=== PATIENT | male | born 1970 | race Caucasian/White ===

== ENCOUNTER → 2016-07-21 | Outpatient (CLI) | payer SELFPAY ==
[2016-07-21 07:51] LABS: ALT 29 U/L (21-72); AST 17 U/L (17-59); Cholesterol 184 mg/dL (<200); HDL Cholesterol 34 mg/dL (40-60); Triglycerides 260 mg/dL (<150)
== END | disposition home or self-care (01) ==
LOC: LABWHC1 06:32
PROVIDERS: ATTEND Internal Medicine Cardiovascular Disease
DX: E78.2 Mixed hyperlipidemia (principal)
CPT/HCPCS: 36415; 80061; 84450; 84460

== ENCOUNTER 2017-05-09 15:03 | Emergency (ER) | payer OTHER ==
[2017-05-09 15:56] VITALS: BP 163/84; PULSE 81; RESP 18; TEMP 97.3
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
--- NOTE | 2017-05-09 17:26 | CT ---
EXAMINATION TYPE: CT brain gaye evangelista DATE OF EXAM: 05/09/2017 COMPARISON: NONE HISTORY: Patient complains of neck pain post fall without blow to head. Patient denies head complain ts at time of study. Pain CT DLP: 1970 mGycm Automated exposure control for dose reduction was used. TECHNIQUE: CT scan of the head and cervical spine are performed without contrast. FINDINGS: Ventricles and sulci appear normal. There is no mass effect nor midline shift. There is n o sign of intracranial hemorrhage. The calvarium is intact. There is some mild mucosal thickening in the ethmoid sinuses. Cervical vertebra have normal alignment. There is mild anterior spurring at C5-C6 C6-7. Disc spaces a re fairly normal. Facet joints are intact. Skull base appears intact. There is no evidence of cervica l spine fracture. IMPRESSION: Mild ethmoid sinusitis. Otherwise negative CT scan of the brain. Mild degenerative changes in the lower cervical spine. No fracture.
--- NOTE | 2017-05-09 17:27 | XR ---
EXAMINATION TYPE: XR thoracic spine complete DATE OF EXAM: 05/09/2017 COMPARISON: NONE HISTORY: Back pain TECHNIQUE: 4 views FINDINGS: The thoracic vertebra have normal alignment. There is spurring anteriorly in the mid and lo wer thoracic spine. There is no paraspinal mass. Posterior elements appear intact. IMPRESSION: Mild spondylotic changes. No fracture seen.
--- NOTE | 2017-05-09 17:28 | XR ---
EXAMINATION TYPE: XR lumbar spine 2 or 3V DATE OF EXAM: 05/09/2017 COMPARISON: NONE HISTORY: Back pain TECHNIQUE: 3 views FINDINGS: The vertebra have normal alignment. Posterior elements are intact. Disc spaces are fairly n ormal. Sacroiliac joints are intact. There is no compression fracture. IMPRESSION: Negative lumbar spine exam.
== END 2017-05-09 17:53 | disposition home or self-care (01) ==
LOC: EC 15:03
DX: S20.221A Contusion of right back wall of thorax, initial encounter (principal); K21.9 Gastro-esophageal reflux disease without esophagitis; I25.2 Old myocardial infarction; E78.5 Hyperlipidemia, unspecified; I10 Essential (primary) hypertension; F17.200 Nicotine dependence, unspecified, uncomplicated; Z95.5 Presence of coronary angioplasty implant and graft; Z98.890 Other specified postprocedural states; Z79.82 Long term (current) use of aspirin; Z79.899 Other long term (current) drug therapy; Z91.048 Other nonmedicinal substance allergy status; W01.198A Fall on same level from slipping, tripping and stumbling with subsequent striking against other object, initial encounter; Y92.69 Other specified industrial and construction area as the place of occurrence of the external cause; Y99.0 Civilian activity done for income or pay
CPT/HCPCS: 70450; 72072; 72100; 72125; 99284

== ENCOUNTER → 2017-07-31 | Outpatient (CLI) | payer BC ==
[2017-07-31 13:13] LABS: Basophils # (A) 0.1 k/uL (0-0.2); Basophils % (A) 1 %; Eosinophils # (A) 0.5 k/uL (0-0.7); Eosinophils % (A) 5 %; HCT 38.4 % (39.0-53.0); HGB 13.1 gm/dL (13.0-17.5); Lymphocytes # (A) 2.2 k/uL (1.0-4.8); Lymphocytes % (A) 24 %; MCV 88.2 fL (80.0-100.0); Mean Platelet Volume 6.4; Monocytes # (A) 0.5 k/uL (0-1.0); Monocytes % (A) 6 %; Neutrophils # (A) 5.8 k/uL (1.3-7.7); Neutrophils % (A) 63 %; Platelet Count 340 k/uL (150-450); RBC 4.36 m/uL (4.30-5.90); RDW 14.2 % (11.5-15.5); WBC 9.2 k/uL (3.8-10.6)
[2017-07-31 13:19] LABS: ALT 29 U/L (21-72); AST 13 U/L (17-59); Albumin 3.8 g/dL (3.5-5.0); Alkaline Phosphatase 84 U/L (38-126); Anion Gap 10 mmol/L; Blood Urea Nitrogen 13 mg/dL (9-20); Calcium 9.1 mg/dL (8.4-10.2); Carbon Dioxide 30 mmol/L (22-30); Chloride 102 mmol/L (98-107); Cholesterol 128 mg/dL (<200); Glucose 135 mg/dL (74-99); HDL Cholesterol 35 mg/dL (40-60); LDL Cholesterol,Calculated 66 mg/dL (0-99); Potassium 4.4 mmol/L (3.5-5.1); Sodium 142 mmol/L (137-145); Total Bilirubin 0.2 mg/dL (0.2-1.3); Total Protein 6.5 g/dL (6.3-8.2); Triglycerides 133 mg/dL (<150)
[2017-07-31 22:44] LABS: Hemoglobin A1C 6.7 % (4.0-6.0)
== END ==
LOC: LABWHC1 12:14
PROVIDERS: ATTEND Family Medicine
DX: E11.9 Type 2 diabetes mellitus without complications (principal); I10 Essential (primary) hypertension
CPT/HCPCS: 36415; 80053; 80061; 83036; 84443; 85025

== ENCOUNTER 2017-08-07 11:19 | Day surgery (SDC) | payer BC ==
[2017-08-03 10:54] VITALS: BMI 44.9
[~2017-08-07 11:19] MED LIST: LACTATED RINGERS 1,000 ML IV SCH
[2017-08-07 11:45] VITALS: RESP 18; TEMP 98.1
[2017-08-07] MEDS ORDERED: LIDOCAINE 1% 20 ML VIAL (10MG/ML) FOR IV START INTRADERMA ONE (11:56)
[2017-08-07] MEDS ORDERED: PROPOFOL 10 MG/ML 20 ML VIAL IV ONE ×2 (12:40)
[2017-08-07] MEDS ORDERED: LIDOCAINE 1% INJ 10MG/ML (20 ML MDV) ONE ×2 (12:40)
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
--- NOTE | 2017-08-07 13:03 | P.OP ---
Date of Procedure: 08/07/17 Preoperative Diagnosis: GI bleed Postoperative Diagnosis: Colonic polyp at 20 cm pathology pending Procedure(s) Performed: Colonoscopy Anesthesia: MAC Surgeon: Javier Tortter Pathology: other (Colonic polyp 20 cm) Condition: stable Disposition: PACU Description of Procedure: The patient's placed on the endoscopy table in the lateral position. He received IV sedation. Digital rectal exam was performed which revealed no abnormalities. The prostate was symmetric without nodules. The flexible colonoscope was then placed patient anus and passed throughout the entire colon. The ileocecal valve was visualized. The cecum, ascending, transverse colon appeared normal. The descending and sigmoid colon appeared normal. At the rectum with a 20 cm haleigh there was a hemorrhagic polyp. This was removed with the snare. Scope was withdrawn and the remainder of the rectum. Normal. Scope was withdrawn for patient.
[2017-08-07 13:27] VITALS: BP 150/93; PULSE 75
== END 2017-08-07 13:32 | disposition home or self-care (01) ==
LOC: ORWHC2ENDO 11:19
PROVIDERS: ATTEND Surgery
DX: K62.1 Rectal polyp (principal); K21.9 Gastro-esophageal reflux disease without esophagitis; E78.5 Hyperlipidemia, unspecified; I10 Essential (primary) hypertension; I25.2 Old myocardial infarction; M19.90 Unspecified osteoarthritis, unspecified site; G47.30 Sleep apnea, unspecified; F32.9 Major depressive disorder, single episode, unspecified; E66.9 Obesity, unspecified; Z68.41 Body mass index [BMI] 40.0-44.9, adult; F17.210 Nicotine dependence, cigarettes, uncomplicated; Z91.048 Other nonmedicinal substance allergy status; Z79.82 Long term (current) use of aspirin; Z79.899 Other long term (current) drug therapy; Z99.89 Dependence on other enabling machines and devices; Z86.010 Personal history of colon polyps; Z95.5 Presence of coronary angioplasty implant and graft; Z80.9 Family history of malignant neoplasm, unspecified
CPT/HCPCS: 45385; 88305; J2001; J2704

== ENCOUNTER 2017-11-07 13:46 | Observation (INO) | payer BC ==
[2017-11-07 14:33] LABS: Basophils # (A) 0.1 k/uL (0-0.2); Basophils % (A) 1 %; Eosinophils # (A) 0.6 k/uL (0-0.7); Eosinophils % (A) 5 %; HCT 38.6 % (39.0-53.0); Lymphocytes # (A) 2.5 k/uL (1.0-4.8); Lymphocytes % (A) 20 %; MCHC 33.6 g/dL (31.0-37.0); MCV 89.4 fL (80.0-100.0); Mean Platelet Volume 6.9; Monocytes # (A) 0.4 k/uL (0-1.0); Monocytes % (A) 3 %; Neutrophils # (A) 8.7 k/uL (1.3-7.7); Neutrophils % (A) 70 %; Platelet Count 372 k/uL (150-450); RBC 4.31 m/uL (4.30-5.90); RDW 14.3 % (11.5-15.5); WBC 12.5 k/uL (3.8-10.6)
[2017-11-07 14:42] LABS: Partial Thromboplastin Time 22.3 sec (22.0-30.0); Prothrombin Time 9.5 sec (9.0-12.0)
[2017-11-07 14:43] LABS: ALT 29 U/L (21-72); AST 18 U/L (17-59); Albumin 3.9 g/dL (3.5-5.0); Alkaline Phosphatase 111 U/L (38-126); Anion Gap 10 mmol/L; Blood Urea Nitrogen 14 mg/dL (9-20); Calcium 9.3 mg/dL (8.4-10.2); Carbon Dioxide 23 mmol/L (22-30); Chloride 103 mmol/L (98-107); Glucose 275 mg/dL (74-99); Magnesium 1.7 mg/dL (1.6-2.3); Potassium 4.5 mmol/L (3.5-5.1); Sodium 136 mmol/L (137-145); Total Bilirubin 0.3 mg/dL (0.2-1.3); Total Protein 7.2 g/dL (6.3-8.2)
--- NOTE | 2017-11-07 14:46 | XR ---
EXAMINATION TYPE: XR chest 2V DATE OF EXAM: 11/07/2017 COMPARISON: 09/05/2014 TECHNIQUE: PA and lateral views submitted. HISTORY: Chest pain FINDINGS: The lungs are clear and there is no pneumothorax, pleural effusion, or focal pneumonia. Heart is mi ldly prominent. There is a mild central coarsened interstitium. Biapical pleural thickening. Hypertro phic change of the spine. IMPRESSION: 1. Cardia megaly correlate for mild central venous congestion.
[2017-11-07 14:58] LABS: Creatine Kinase 62 U/L (55-170)
[2017-11-07 15:10] LABS: Creatine Kinase MB 0.5 ng/mL (0.0-2.4); Troponin I <0.012 ng/mL (0.000-0.034)
[2017-11-07] MEDS ORDERED: NITROGLYCERIN SL TABS 0.4 MG TAB SUBLINGUAL PRN (16:17)
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
[2017-11-07] MEDS: CITALOPRAM HYDROBROMIDE 20 MG TAB PO SCH (20:13)
[2017-11-07] MEDS: PRAVASTATIN SODIUM 40 MG TAB PO SCH (20:13)
[2017-11-07] MEDS: PANTOPRAZOLE 40 MG TABLET PO SCH (20:13)
[2017-11-07] MEDS: CYCLOBENZAPRINE 10 MG TAB PO SCH (20:13)
[2017-11-07] MEDS: FUROSEMIDE 20 MG TAB PO SCH (20:13)
[2017-11-07] MEDS: NICOTINE 21MG/24HR PATCH TRANSDERM SCH (20:42)
[2017-11-07] MEDS ORDERED: CLOPIDOGREL 75 MG TAB PO SCH (21:00)
[2017-11-07] MEDS ORDERED: ASPIRIN 81 MG PO SCH (21:00)
[2017-11-07 21:23] LABS: Creatine Kinase 54 U/L (55-170)
[2017-11-07 21:36] LABS: Creatine Kinase MB 0.4 ng/mL (0.0-2.4); Troponin I <0.012 ng/mL (0.000-0.034)
--- NOTE | 2017-11-07 22:00 | HP ---
HISTORY AND PHYSICAL CHIEF COMPLAINT: A 47-year-old male admitted with a history of myocardial infarction, multiple cardiac stents in the past. He has had chest pain, chest pressure radiating down his left arm, suspicious for heart disease with some diaphoresis. No nausea, vomiting. Had some numbness in the jaw. Came to emergency room due to rule out further myocardial infarction. REVIEW OF SYSTEMS: Fourteen point review of systems negative except for mentioned in HPI. MEDICATIONS: 1. Prilosec 20 mg daily. 2. Coreg 12.5 b.i.d. 3. Aspirin 81 daily. 4. Pravachol 40 daily. 5. Celexa 20 daily. 6. Flexeril 10 daily. 7. Lasix 20 daily. 8. Requip 1 mg q.h.s. ALLERGIES: ADHESIVE. The 14-point review of systems negative except for mentioned in HPI. PAST MEDICAL HISTORY: Eye disorder, GERD, dyslipidemia, hypertension, myocardial infarction, glaucoma, heart catheterization, stent, hernia repair, orthopedic surgery, right knee scopes x3, previous 3 previous heart catheterization, one stent. SOCIAL HISTORY: Current everyday smoker. No alcohol. No illicit drugs. PHYSICAL EXAMINATION: Temperature 98, pulse 99, respiratory 16 to 18, blood pressure 158/82, O2 96% on room air. HEENT: Normocephalic, atraumatic. Lungs are clear. CARDIAC: S1, S2. Abdomen is soft, nontender. MUSCULOSKELETAL: Pulses are equal. EXTREMITIES: Motor skills no focal deficits. Cranial nerves are intact. SKIN: No rash, excoriation, bruises. PSYCH: Fair mood and affect. EKG shows no ischemia. Patient has a bit of leukocytosis. Glucose of 275. Chest x- ray cardiomegaly. No signs of heart failure. We will check a urinary tract infection to rule that out. Rule out diabetes. Continue to check troponins. Await for Cardiology consult. D-dimer to rule out PE, although chest x-ray is negative this time. MMODL / IJN: [id number] /
[2017-11-08 03:11] LABS: Creatine Kinase 49 U/L (55-170)
[2017-11-08 03:24] LABS: Creatine Kinase MB 0.4 ng/mL (0.0-2.4); Troponin I <0.012 ng/mL (0.000-0.034)
[2017-11-08 03:29] LABS: Cholesterol 214 mg/dL (<200); HDL Cholesterol 30 mg/dL (40-60); Triglycerides 492 mg/dL (<150)
[2017-11-08 05:14] LABS: Hemoglobin A1C 9.1 % (4.0-6.0)
[2017-11-08] MEDS ORDERED: ASPIRIN 325 MG TAB PO SCH (09:00)
[2017-11-08 10:00] VITALS: BMI 46.5
[2017-11-08] MEDS ORDERED: SODIUM CHLORIDE 0.9% 1,000 ML in EMPTY BAG 1 BAG IV ONE (10:25)
[2017-11-08] MEDS ORDERED: ALPRAZolam 0.25 MG TAB PO PRN (10:25)
[2017-11-08] MEDS ORDERED: ASPIRIN 325 MG TAB PO STA (10:25)
[2017-11-08] MEDS ORDERED: ALPRAZolam 0.5 MG TAB PO PRN (10:25)
[2017-11-08] MEDS: CARVEDILOL 12.5 MG TAB PO SCH ×2 (11:05→17:17)
[2017-11-08] MEDS: NICOTINE 21MG/24HR PATCH TRANSDERM SCH (11:06)
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
--- NOTE | 2017-11-08 12:26 | ECHOF ---
Referral Reason:cp MEASUREMENTS -------- HEIGHT: 188.0 cm WEIGHT: 164.2 kg BP: 170/78 RVIDd: 3.6 cm (< 3.3) IVSd: 1.6 cm (0.6 - 1.1) LVIDd: 5.2 cm (3.9 - 5.3) LVPWd: 1.7 cm (0.6 - 1.1) IVSs: 2.0 cm LVIDs: 4.6 cm LVPWs: 1.5 cm LA Diam: 4.8 cm (2.7 - 3.8) Ao Diam: 3.5 cm (2.0 - 3.7) AV Cusp: 1.9 cm (1.5 - 2.6) LA Diam: 4.5 cm (2.7 - 3.8) MV EXCURSION: 18.134 mm (> 18.000) MV EF SLOPE: 75 mm/s (70 - 150) EPSS: 1.2 cm MV E Bethel: 0.66 m/s MV DecT: 156 ms MV A Bethel: 0.66 m/s MV E/A Ratio: 1.01 RAP: 5.00 mmHg RVSP: 13.19 mmHg FINDINGS -------- Sinus rhythm. Morbid Obesity The left ventricular size is normal. There is moderate concentric left ventricular hypertrophy. O verall left ventricular systolic function is normal with, an EF between 55 - 60 %. The right ventricle is mildly enlarged. The left atrial size is normal. The right atrial size is normal. 5.0mg OF Lumason UTLIZED: 2 OR MORE WALL SEGMENTS NOT VISUALIZED. The aortic valve is trileaflet, and appears structurally normal. No aortic stenosis or regurgitation. Mild mitral regurgitation is present. Mild tricuspid regurgitation present. There is no evidence of pulmonary hypertension. The right v entricular systolic pressure, as measured by Doppler, is 13.19mmHg. The pulmonic valve was not well visualized. The aortic root size is normal. There is no pericardial effusion. CONCLUSIONS -------- 1. Morbid Obesity 2. The left ventricular size is normal. 3. There is moderate concentric left ventricular hypertrophy. 4. Overall left ventricular systolic function is normal with, an EF between 55 - 60 %. 5. The right ventricle is mildly enlarged. 6. The left atrial size is normal. 7. The right atrial size is normal. 8. 5.0mg OF Lumason UTLIZED: 2 OR MORE WALL SEGMENTS NOT VISUALIZED. 9. The aortic valve is trileaflet, and appears structurally normal. No aortic stenosis or regurgitati on. 10. Mild mitral regurgitation is present. 11. Mild tricuspid regurgitation present. 12. There is no evidence of pulmonary hypertension. 13. The right ventricular systolic pressure, as measured by Doppler, is 13.19mmHg. 14. The pulmonic valve was not well visualized. 15. The aortic root size is normal. 16. There is no pericardial effusion. [employer]SEMBLER: Anca Velasquez RDCS
[2017-11-08] MEDS: FUROSEMIDE 20 MG TAB PO SCH (20:39)
[2017-11-08] MEDS: CITALOPRAM HYDROBROMIDE 20 MG TAB PO SCH (20:39)
[2017-11-08] MEDS: PANTOPRAZOLE 40 MG TABLET PO SCH (20:39)
[2017-11-08] MEDS: CYCLOBENZAPRINE 10 MG TAB PO SCH (20:39)
[2017-11-08] MEDS: PRAVASTATIN SODIUM 40 MG TAB PO SCH (20:39)
[2017-11-08] MEDS ORDERED: INSULIN ASPART 100 UNIT/ML 1 ML 10 ML VIAL SQ SCH (21:00)
[2017-11-08 21:30] LABS: Glucose,Whole Blood 513 mg/dL (75-99)
[2017-11-08] MEDS ORDERED: INSULIN ASPART 100 UNIT/ML 1 ML 10 ML VIAL SQ ONE (21:34)
[2017-11-08 22:29] LABS: Glucose,Whole Blood 456 mg/dL (75-99)
[2017-11-08] MEDS: INSULIN ASPART 100 UNIT/ML 1 ML 10 ML VIAL SQ SCH (22:47)
[2017-11-08 23:53] LABS: Glucose,Whole Blood 395 mg/dL (75-99)
[2017-11-09] MEDS: CARVEDILOL 12.5 MG TAB PO SCH (05:43)
[2017-11-09 06:58] LABS: Glucose,Whole Blood 207 mg/dL (75-99)
[2017-11-09] MEDS: INSULIN ASPART 100 UNIT/ML 1 ML 10 ML VIAL SQ SCH ×2 (08:32→13:03)
[2017-11-09] MEDS ORDERED: ASPIRIN 81 MG PO ONE (09:00)
[2017-11-09] MEDS ORDERED: ASPIRIN 81 MG PO SCH (09:00)
[2017-11-09] MEDS ORDERED: IV FLUID CONTINUATION 575 ML IV ONE (10:42)
[2017-11-09] MEDS: MIDAZOLAM 2 MG/2 ML VIAL IV ONE ×2 (11:04→11:10)
[2017-11-09] MEDS ORDERED: LIDOCAINE 1% INJ 10MG/ML (20 ML MDV) SQ ONE (11:08)
[2017-11-09] MEDS ORDERED: NITROGLYCERIN OINT 1 INCH/GM PACKET TOPICAL ONE (11:12)
[2017-11-09] MEDS ORDERED: fentaNYL (PF) 50 MCG/ML 2 ML AMP IV ONE (11:14)
[2017-11-09] MEDS ORDERED: ENALAPRILAT 1.25 MG/ML 1 ML VIAL IV ONE (11:27)
[2017-11-09] MEDS ORDERED: RX INFO: IV CONTRAST WAS GIVEN 1 EACH MISC MISCELLANE PRN (11:32)
[2017-11-09] MEDS ORDERED: IOPAMIDOL-370 125ML BTL INJ ONE (11:39)
[2017-11-09] MEDS ORDERED: SODIUM CHLORIDE 0.9% 1,000 ML IV SCH (11:45)
[2017-11-09] MEDS ORDERED: LISINOPRIL 10 MG TAB PO SCH (11:45)
[2017-11-09] MEDS: NICOTINE 21MG/24HR PATCH TRANSDERM SCH (11:45)
[2017-11-09 12:12] LABS: Glucose,Whole Blood 163 mg/dL (75-99)
[2017-11-09 12:18] VITALS: RESP 18; TEMP 98.3
--- NOTE | 2017-11-09 12:29 | CC ---
CARDIAC CATHETERIZATION REPORT INDICATION: Unstable angina. This is a 47-year-old gentleman with history of coronary artery disease, status post angioplasty of the ostial right coronary artery, who comes into hospital complaining of chest pain. Did not have significant EKG changes and myocardial infarction was ruled out. My associate who evaluated the patient advised him to undergo cardiac catheterization. The patient had been explained of risks, benefits and alternatives. PROCEDURE NOTE: After obtaining informed consent, left heart catheterization and coronary angiogram were performed via the right femoral artery using standard Alecia catheters. Patient tolerated the procedure well without any obvious immediate complications. A femoral angiogram was performed and Angio-Seal was deployed for hemostasis. Patient received moderate conscious sedation. Total sedation time was 23 minutes. FINDINGS: 1. HEMODYNAMICS: Left ventricular end-diastolic pressure is 18 to 20 mm. There is no significant gradient across the aortic valve. 2. LEFT VENTRICULOGRAM: Left ventriculogram is not performed. 3. ANGIOGRAPHIC DATA: 4. Left main coronary artery: Left main coronary artery is a normal-sized vessel and is free of stenosis. Divides into left anterior descending coronary artery and circumflex coronary artery. LAD and its branches are free of significant stenosis. There is myocardial bridging involving the diagonal branch. Circumflex coronary artery and its branches are free of significant disease. Right coronary artery is a large dominant vessel. The ostial portion was previously stented. It appears patent. There is a mild atherosclerotic plaque in the proximal part that we do not see any dampening of the pressure and no significant lesion is noted. CONCLUSIONS: Patent stent within the ostial portion of the right coronary artery. PLAN: The patient's management is going to be in the form of medical therapy, aggressive risk factor modification and optimal control of blood pressure. If symptoms persist, I may consider a stress test on him and if he has ischemia in the right coronary artery distribution, we may have to re-address the ostium. MMODL / IJN: [id number] /
[2017-11-09 16:12] VITALS: BP 149/82; PULSE 81
== END 2017-11-09 18:00 | disposition home or self-care (01) ==
LOC: EC 13:46 → 3OBS 16:17
PROVIDERS: ADMIT Family Medicine; ATTEND Family Medicine
DX: I25.110 Atherosclerotic heart disease of native coronary artery with unstable angina pectoris (principal); I11.9 Hypertensive heart disease without heart failure; E78.5 Hyperlipidemia, unspecified; H40.9 Unspecified glaucoma; E78.1 Pure hyperglyceridemia; K21.9 Gastro-esophageal reflux disease without esophagitis; R05 Cough; F17.200 Nicotine dependence, unspecified, uncomplicated; D72.829 Elevated white blood cell count, unspecified; G47.33 Obstructive sleep apnea (adult) (pediatric); M19.90 Unspecified osteoarthritis, unspecified site; E66.01 Morbid (severe) obesity due to excess calories; Z68.42 Body mass index [BMI] 45.0-49.9, adult; Z79.82 Long term (current) use of aspirin; Z79.899 Other long term (current) drug therapy; Z91.048 Other nonmedicinal substance allergy status; Z95.5 Presence of coronary angioplasty implant and graft; I25.2 Old myocardial infarction; Z99.89 Dependence on other enabling machines and devices; Z82.49 Family history of ischemic heart disease and other diseases of the circulatory system; Z80.9 Family history of malignant neoplasm, unspecified
CPT/HCPCS: 99285 ×2; 36415; 93005; 93306; 93458; 85379; 83880; 80061; 80053; 84443; 82550 ×2; 82553 ×2; 83735; 84484 ×2; 85025; 85610; 85730; 87086; 83036; 71046; 99152; 99153; G0378 ×3; C1760; C1894; C1769; S4990; J2250; J2001; J3010; Q9950; Q9967

== ENCOUNTER 2018-07-03 14:43 | Observation (INO) | payer OTHER ==
--- NOTE | 2018-07-03 15:15 | XR ---
EXAMINATION TYPE: XR chest 2V DATE OF EXAM: 07/03/2018 COMPARISON: 11/07/2017 INDICATION: Chest pain and hypertension TECHNIQUE: Frontal and lateral views of the chest are obtained. FINDINGS: The heart size is normal. The pulmonary vasculature is normal. The lungs are clear. IMPRESSION: 1. No acute pulmonary process.
[2018-07-03 15:16] LABS: Basophils # (A) 0.1 k/uL (0-0.2); Basophils % (A) 1 %; Eosinophils # (A) 0.6 k/uL (0-0.7); Eosinophils % (A) 5 %; HCT 36.7 % (39.0-53.0); Lymphocytes # (A) 3.8 k/uL (1.0-4.8); Lymphocytes % (A) 33 %; MCH 28.9 pg (25.0-35.0); MCHC 32.6 g/dL (31.0-37.0); MCV 88.7 fL (80.0-100.0); Mean Platelet Volume 6.6; Monocytes # (A) 0.4 k/uL (0-1.0); Monocytes % (A) 4 %; Neutrophils # (A) 6.6 k/uL (1.3-7.7); Neutrophils % (A) 56 %; Platelet Count 374 k/uL (150-450); RBC 4.14 m/uL (4.30-5.90); RDW 14.6 % (11.5-15.5); WBC 11.7 k/uL (3.8-10.6)
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
[2018-07-03 15:25] LABS: ALT 22 U/L (21-72); AST 12 U/L (17-59); Albumin 4.1 g/dL (3.5-5.0); Alkaline Phosphatase 85 U/L (38-126); Anion Gap 9 mmol/L; Blood Urea Nitrogen 16 mg/dL (9-20); Calcium 9.6 mg/dL (8.4-10.2); Carbon Dioxide 26 mmol/L (22-30); Chloride 102 mmol/L (98-107); Glucose 133 mg/dL (74-99); Lipase 41 U/L (23-300); Magnesium 1.6 mg/dL (1.6-2.3); Potassium 3.9 mmol/L (3.5-5.1); Sodium 137 mmol/L (137-145); Total Bilirubin 0.4 mg/dL (0.2-1.3)
[2018-07-03 15:28] LABS: INR 0.9 (<1.2); Partial Thromboplastin Time 23.9 sec (22.0-30.0); Prothrombin Time 9.5 sec (9.0-12.0)
[2018-07-03] MEDS ORDERED: ASPIRIN 325 MG TAB PO STA (16:03)
[2018-07-03] MEDS ORDERED: MORPHINE SULFATE 4 MG/ML SYRINGE IV PRN (16:04)
[2018-07-03] MEDS ORDERED: NALOXONE 0.4 MG/ML 1 ML VIAL IV PRN (16:04)
[2018-07-03] MEDS ORDERED: ONDANSETRON 4 MG/2 ML VIAL IVP PRN (16:04)
[2018-07-03] MEDS ORDERED: ACETAMINOPHEN TAB 325 MG TAB PO PRN (16:04)
[2018-07-03] MEDS ORDERED: NITROGLYCERIN SL TABS 0.4 MG TAB SUBLINGUAL PRN (16:09)
[2018-07-03] MEDS ORDERED: CARVEDILOL 12.5 MG TAB PO SCH (17:30)
[2018-07-03] MEDS ORDERED: PRAVASTATIN SODIUM 40 MG TAB PO SCH (21:00)
[2018-07-03] MEDS ORDERED: CITALOPRAM HYDROBROMIDE 20 MG TAB PO SCH (21:00)
[2018-07-03] MEDS ORDERED: ASPIRIN 81 MG PO SCH (21:00)
[2018-07-03 21:36] VITALS: BP 153/81; PULSE 66; RESP 18; TEMP 97.9
[2018-07-03 21:55] VITALS: BMI 41.2
[2018-07-04] MEDS ORDERED: LISINOPRIL-HCTZ 20-12.5 MG 1 EACH TAB PO SCH (09:00)
== END 2018-07-03 22:20 | disposition left against medical advice (07) ==
LOC: EC 14:43 → 1SOBS 16:04
PROVIDERS: ADMIT Family Medicine; ATTEND Family Medicine
DX: R07.2 Precordial pain (principal); R11.0 Nausea; I25.10 Atherosclerotic heart disease of native coronary artery without angina pectoris; Z95.5 Presence of coronary angioplasty implant and graft; F17.200 Nicotine dependence, unspecified, uncomplicated; E11.9 Type 2 diabetes mellitus without complications; I10 Essential (primary) hypertension; K21.9 Gastro-esophageal reflux disease without esophagitis; I25.2 Old myocardial infarction; M19.90 Unspecified osteoarthritis, unspecified site; G47.30 Sleep apnea, unspecified; H40.9 Unspecified glaucoma; Z99.89 Dependence on other enabling machines and devices; Z79.899 Other long term (current) drug therapy; Z79.84 Long term (current) use of oral hypoglycemic drugs; Z79.82 Long term (current) use of aspirin; Z79.1 Long term (current) use of non-steroidal anti-inflammatories (NSAID); Z91.048 Other nonmedicinal substance allergy status; Z80.9 Family history of malignant neoplasm, unspecified; Z53.21 Procedure and treatment not carried out due to patient leaving prior to being seen by health care provider
CPT/HCPCS: 99285; 36415; 93005; 80053; 83690; 83735; 84484; 85025; 85610; 85730; 71046; G0378

== ENCOUNTER 2019-06-30 16:11 | Emergency (ER) | payer OTHER ==
[2019-06-30 16:17] VITALS: TEMP 98
[2019-06-30] MEDS ORDERED: KETOROLAC 60 MG/2 ML VIAL IM STA (16:51)
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
[2019-06-30] MEDS ORDERED: DIAZEPAM 5 MG/ML 2 ML INJ IVP STA (17:06)
[2019-06-30] MEDS ORDERED: hydrALAZINE HCL 20 MG/ML 1 ML VIAL IVP STA (17:06)
[2019-06-30] MEDS ORDERED: KETOROLAC 60 MG/2 ML VIAL IVP STA (17:06)
--- NOTE | 2019-06-30 17:16 | XR ---
EXAMINATION TYPE: XR knee complete RT DATE OF EXAM: 06/30/2019 COMPARISON: 12/08/2015 HISTORY: Trauma. Knee pain after falling. TECHNIQUE: FINDINGS: 3 views were obtained. There is minor spurring of the femoral and tibial condyles. Joint sp aces are fairly normal. There is no sign of joint effusion. There is minor spurring on the patella. IMPRESSION: Mild degenerative changes. No fracture. No significant change compared to old exam.
[2019-06-30 18:17] VITALS: BP 140/75; PULSE 73; RESP 16
== END 2019-06-30 18:16 | disposition home or self-care (01) ==
LOC: EC 16:11
DX: S86.911A Strain of unspecified muscle(s) and tendon(s) at lower leg level, right leg, initial encounter (principal); K21.9 Gastro-esophageal reflux disease without esophagitis; I10 Essential (primary) hypertension; I25.2 Old myocardial infarction; M19.90 Unspecified osteoarthritis, unspecified site; G47.30 Sleep apnea, unspecified; H40.9 Unspecified glaucoma; F17.200 Nicotine dependence, unspecified, uncomplicated; Z79.82 Long term (current) use of aspirin; Z79.899 Other long term (current) drug therapy; Z99.89 Dependence on other enabling machines and devices; Z91.048 Other nonmedicinal substance allergy status; Z95.5 Presence of coronary angioplasty implant and graft; Z98.890 Other specified postprocedural states; Z87.828 Personal history of other (healed) physical injury and trauma; W19.XXXA Unspecified fall, initial encounter; Y92.69 Other specified industrial and construction area as the place of occurrence of the external cause; Y99.0 Civilian activity done for income or pay
CPT/HCPCS: 73562; 99284; 96372; L1830; J1885

== ENCOUNTER → 2019-09-23 | Outpatient (CLI) | payer OTHER ==
--- NOTE | 2019-09-23 23:50 | MR ---
EXAMINATION TYPE: MR knee RT wo con DATE OF EXAM: 09/23/2019 COMPARISON: 01/04/2016 HISTORY: Knee pain and swelling. Previous surgery. Multiplanar multiecho imaging of the right knee was performed without contrast. The posterior cruciate ligament appears intact. There appears to be complete disruption of the anteri or cruciate ligament. The patella is intact. There is no significant joint fluid. There is tear of th e superior surface of the posterior horn of the medial meniscus. The collateral ligaments appear inta ct. I see no evidence of a fracture. There is minimal spurring of the femoral and tibial condyles. Th ere is small vertical tear through the inferior surface of the anterior horn of the lateral meniscus. There is mild subcutaneous edema anterior to the patella. IMPRESSION: There is complete tear of the anterior cruciate ligament unchanged. There is small vertical tear infe rior surface of the anterior horn of the lateral meniscus that appears new compared to old exam. Ther e is small tear of the superior surface of the posterior horn medial meniscus which appears new stevan red to old exam. Anterior subcutaneous edema. No fracture. Minute knee joint effusion unchanged.
== END | disposition home or self-care (01) ==
LOC: RADMRIMAIN 18:19
PROVIDERS: ATTEND Orthopaedic Surgery Sports Medicine
DX: S83.241A Other tear of medial meniscus, current injury, right knee, initial encounter (principal); S83.281A Other tear of lateral meniscus, current injury, right knee, initial encounter; M25.461 Effusion, right knee

== ENCOUNTER → 2020-03-31 | Outpatient (CLI) | payer OTHER ==
--- NOTE | 2020-03-31 23:28 | CONS ---
CONSULTATION REASON FOR CONSULTATION: Sleep apnea. This is a 49-year-old male patient with known and established diagnosis of severe symptomatic obstructive sleep apnea. Based on a previous evaluation that was done in 2016, the patient was diagnosed having severe GABRIEL and a polysomnogram that was done in 2015 showed an AHI of 148.2. At that time the patient used to weigh around 354 pounds. Based on that, the patient was given CPAP therapy at a pressure of 18 cm of water and currently he is using the same CPAP machine that he was given 4 years ago. He ran out of supplies and he is coming in for a compliancy check and followup. I have not seen this patient for at least 4 years. On today's evaluation, the patient is demonstrating adequate compliancy. He is averaging around 7.3 hours of CPAP use per night. His CPAP use for more than 4 hours is above 90%. His leak is on the order of 4 L/minute and his AHI is down to 1. Note that he is using a full-face mask and he has been purchasing various masks off line. He has also multiple medical problems and comorbidities. In terms of his sleep apnea, the patient is going to bed at around 10 p.m., waking up at 5 a.m. in the morning. He does not snore. He does not stop breathing while on CPAP therapy. He feels refreshed. His Interlochen score is 4. He is working for [employer]. His weight is stable. No recent cardiovascular events or complications. No sleep paralysis. No hallucinations. No cataplexy. No significant restlessness in his lower extremities. His machine is functional for now. He is in need for renewal of his supplies. PAST MEDICAL HISTORY: 1. Obstructive sleep apnea, severe, with an AHI of 148, based on a sleep study that was done in June of 2015. 2. Obesity. 3. Hyperlipidemia. 4. Chronic back pain. 5. Diabetes mellitus. 6. Acid reflux. 7. Coronary artery disease with previous coronary stent insertion. SURGICAL HISTORY: Surgical history includes inguinal hernia repair, reconstructive left knee surgery, meniscal repair on the right knee and cardiac catheterization and stenting in 2016. DRUG ALLERGIES: NONE. He has an ALLERGY TO MEDICAL TAPE. OUTPATIENT MEDICATION LIST: Outpatient medication list includes multivitamin, calcium 600 mg p.o. daily, aspirin 81 mg p.o. daily, Lipitor 40 mg p.o. daily, Celexa 20 mg p.o. daily, baclofen 10 mg p.o. daily, Coreg 6.125 mg twice a day, 2 mg p.o. twice a day, Protonix 40 mg p.o. daily, metformin 500 mg p.o. twice a day. SOCIAL HISTORY: The patient is a smoker, one pack of cigarettes a day. No history of alcoholism. No history of IV drugs. FAMILY HISTORY: Positive for hypertension and coronary artery disease and heart disease in general. REVIEW OF SYSTEMS: Fourteen-point review of systems was done and positive findings are all mentioned in the history of present illness. Note that he has no major somnolence or sleepiness, as the patient has been compliant with CPAP therapy. He is not falling asleep while doing day-to-day activities. No grinding of the teeth. No sleepwalking. No dry mouth. He denies having to wake up in the middle of night gasping for air. No sleeptalking. No anxiety. No depression. No angina. No hypertension. No recent history of CVAs or cardiac events or palpitations. PHYSICAL EXAMINATION: HIS CURRENT VITALS: BP is 160/86, pulse 94, respirations 18, temperature 98.0, saturation 94% on room air. Height is 6 feet 2 inches, weight is 357, BMI is 45.7. Interlochen score is 4. Neck size is 21 inches. GENERAL APPEARANCE: Obese, calm, comfortable. HEAD: Atraumatic, normocephalic. NECK: Supple. Mallampati class IV. There is no goiter or neck masses. LUNGS: Diminished; otherwise clear. HEART: Heart sounds are regular rate and rhythm. Normal S1, S2. No S3, S4. No murmurs. ABDOMEN: Soft, nontender. No organomegaly. EXTREMITIES: No edema. No cyanosis or clubbing. NEUROLOGIC: Awake and alert. There is no focal neurological deficit. PSYCHIATRIC: Negative for anxiety or depression. IMPRESSION: 1. Severe symptomatic obstructive sleep apnea with an apnea/hypopnea index of 148, currently currently on CPAP at a pressure of 18 cm of water. Treatment has been successful and the patient has been compliant. No recent weight gain or weight loss. Interlochen score is down to 4 at this point in time. 2. Morbid obesity with a body mass index of 45.7. Weight is unchanged over the past 4- 5 years. 3. Hypertension. 4. Coronary artery disease with previous coronary stenting. 5. Hyperlipidemia. 6. Smoking. 7. Chronic pain. 8. Chronic back pain. PLAN: 1. Continue CPAP therapy at a pressure of 18 cm of water. 2. I offered the patient a DreamWear full-face mask [id number], small size. This is a mask to try and an appropriate was given to [facility]. 3. Refill the patient's filters, chambers and offer the patient a Climateline. 4. Optimize cardiovascular risk factors. 5. Encourage weight loss. 6. CPAP therapy in general has been successful. The compliancy data was checked. No need for any further adjustments. Keep the pressure at 18 and see me back in a year's time in followup. MMODL / IJN: [id number] /
== END | disposition home or self-care (01) ==
LOC: SLEEP 15:26
PROVIDERS: ATTEND Internal Medicine Critical Care Medicine
DX: G47.33 Obstructive sleep apnea (adult) (pediatric) (principal); E66.9 Obesity, unspecified; E78.5 Hyperlipidemia, unspecified; G89.29 Other chronic pain; E11.9 Type 2 diabetes mellitus without complications; K21.9 Gastro-esophageal reflux disease without esophagitis; I25.10 Atherosclerotic heart disease of native coronary artery without angina pectoris; Z95.828 Presence of other vascular implants and grafts; Z99.89 Dependence on other enabling machines and devices
CPT/HCPCS: 99211

== ENCOUNTER → 2020-04-10 | Outpatient (CLI) | payer OTHER ==
--- NOTE | 2020-04-10 22:23 | MR ---
EXAMINATION TYPE: MR knee LT wo con DATE OF EXAM: 04/10/2020 COMPARISON: None available. HISTORY: Left knee pain/swelling x 2 weeks, no trauma TECHNIQUE: Multiplanar, multisequence imaging of the left knee is performed without IV contrast. FINDINGS: MEDIAL MENISCUS: Mucoid degeneration of the posterior horn with suspected small tear. LATERAL MENISCUS: Anterior and posterior horns are intact without tear. CRUCIATE LIGAMENTS: The anterior and posterior cruciate ligaments are intact and unremarkable. COLLATERAL LIGAMENTS: The medial collateral ligament and lateral collateral ligament complex are inta ct and unremarkable. EXTENSOR MECHANISM: Visualized quadriceps and patellar tendons are intact. EFFUSION: No significant suprapatellar joint effusion. POPLITEAL CYST: No popliteal/miner cyst. TRICOMPARTMENT SPACES/CARTILAGE: Mild to moderate narrowing of the medial and patellofemoral compartm ents with overlying small partial-thickness chondral defects. Mild narrowing of the lateral compartme nt without significant chondral defect. BONE MARROW SIGNAL: No focal abnormal marrow signal is appreciated. OTHER: No additional significant abnormality is appreciated. IMPRESSION: Mild to moderate osteoarthritis. Mucoid degeneration of the medial meniscus posterior with suspected small tear.
== END | disposition home or self-care (01) ==
LOC: RADMRIMAIN 20:41
PROVIDERS: ATTEND Orthopaedic Surgery Sports Medicine
DX: M17.12 Unilateral primary osteoarthritis, left knee (principal); M23.322 Other meniscus derangements, posterior horn of medial meniscus, left knee

== ENCOUNTER → 2021-05-27 | Outpatient (CLI) | payer OTHER ==
--- NOTE | 2021-05-27 20:22 | SFUN ---
SLEEP CENTER FOLLOW UP NOTE DATE OF SERVICE: 05/27/2021 This 51-year-old gentleman has been followed in Sleep Center for treatment of obstructive sleep apnea-hypopnea syndrome. The patient continues to use his CPAP equipment every night for the whole night. Usage is 30/30 nights, 29/30 nights for more than 4 hours, average 6.8 hours per night. Leak is 25 L/minute, which is within acceptable range. Apnea-hypopnea index is 0.3. Machine looks old, and filter is in very bad condition. Pollock Sleepiness Scale today is 8. MEDICATIONS: 1. Protonix 40 mg once a day. 2. Aspirin 81 mg once a day. 3. Carvedilol 12.5 mg once a day. 4. Robaxin. 5. Atorvastatin 40 mg once a day. 6. Citalopram 20 mg once a day. 7. Glimepiride 2 mg twice a day. 8. Trulicity every Monday. 9. Vitamins. PHYSICAL EXAMINATION: GENERAL: Pleasant gentleman without distress. VITAL SIGNS: BP 171/83, HR 72, RR 16, height 6 feet 1-1/2 inches, weight 332 pounds, body mass index 43.2, temperature 97.7, oxygen saturation at room air 96%. HEENT: PERRLA, EOMI, evaluation of oropharynx showed tongue protrudes midline. Extremely low position of soft palate; Mallampati IV. NECK: Supple, no JVD. Thyroid is not palpable. LUNGS: Clear to percussion and to auscultation. Good air exchange. No wheezing or rhonchi. HEART: S1, S2 regular. No murmurs, gallops, or rubs. ABDOMEN: Soft and nontender. Bowel sounds are present. No organomegaly appreciated. EXTREMITIES: No clubbing or cyanosis. REAL ESTATE TRANSACTION COORDINATOR: Awake, alert, and oriented X3. Cranial nerves 2 to 7 intact. There is no fasciculation or atrophy. noted. No focal deficits observed. IMPRESSION: 1. Severe obstructive sleep apnea-hypopnea syndrome; apnea-hypopnea index 148. Patient demonstrated great compliance with treatment, benefitting from treatment. Normal respiration on CPAP. 2. Obesity. 3. Hypertension. 4. Coronary artery disease, status post stent insertion. 5. Hyperlipidemia. 6. Smoker. 7. History of back pain. PLAN: 1. Prescription for new CPAP unit; parameters the same as at the present time. 2. Patient should continue to use CPAP equipment every night for the whole night. 3. Losing weight. 4. Sleep hygiene with regular time bed for at least 7-1/2 to 8 hours. 5. No driving if feeling any sleepiness. Thank you very much for allowing me to participate in the management of your patient. Sincerely, Jan Mejía MD, PhD, FAASM Diplomat of [employer] Sleep Medicine Board of [employer] Senior [employer] Developer of [facility] [place] MMODL / LACIEN: [id number] /
== END ==
LOC: SLEEP 16:24
PROVIDERS: ATTEND Internal Medicine
DX: G47.33 Obstructive sleep apnea (adult) (pediatric) (principal); I25.10 Atherosclerotic heart disease of native coronary artery without angina pectoris; Z95.5 Presence of coronary angioplasty implant and graft; Z99.89 Dependence on other enabling machines and devices; E66.9 Obesity, unspecified; I10 Essential (primary) hypertension; E78.5 Hyperlipidemia, unspecified; Z68.41 Body mass index [BMI] 40.0-44.9, adult; F17.200 Nicotine dependence, unspecified, uncomplicated; Z91.048 Other nonmedicinal substance allergy status; Z87.39 Personal history of other diseases of the musculoskeletal system and connective tissue

== ENCOUNTER → 2022-01-03 | Outpatient (CLI) | payer OTHER ==
[~2022-01-03] MED LIST changes: -LACTATED RINGERS 1,000 ML IV SCH; +REGADENOSON 0.4 MG/5 ML SYRINGE IV PRN
--- NOTE | 2022-01-03 11:10 | NM ---
"EXAMINATION TYPE: NM stress lexiscan cardiolite DATE OF EXAM: 01/03/2022 COMPARISON: NONE HISTORY: History of tobacco use along with hypertension and diabetes along with prior angioplasty. TECHNIQUE: After the intravenous administration of 10.4 mCi Tc 99m Sestamibi - Cardiolite resting SP ECT images acquired 45 minutes post injection. The patient received 0.4mg Lexiscan, 25.1 mCi Tc 99m Sestamibi - Stress images obtained [address] injection FINDINGS: Review of stress and rest SPECT images demonstrates poor uptake involving the inferior left ventricul ar wall on both stress and rest images with perhaps diminished radiotracer uptake involving basilar t o mid segments seen best on vertical long axis views on stress versus rest images. Gated analysis sh ows overall estimated left ventricular ejection fraction of 33% . Abnormal end-diastolic volume noted . 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 Cannot exclude areas o f ronna-infarct ischemia on this exam. Need to further investigate by direct catheter angiogram should be based on clinical and EKG correlation. A Yellow level critical message alert has been initiated for Ander Alexander MD via the [employer] | Critical Results System on 01/03/2022 11:08 AM. This message alert has been sent to Ander Chung ma, MD via the preferences provided by the clinician for the receipt of Radiology Critical Findings. Message ID [id number]."
--- NOTE | 2022-01-03 12:03 | CA ---
Lexiscan Nuclear Stress Test Report Name: Loenel Rubin Exam Date: 01/03/2022 09:55 Exam Location: [facility] Ht (in): 74 Wt (lb): 356 BSA: 2.78 Ordering Phys: Ander Alexander MD Referring Phys: CRISTY,, Technologist: Ino Goff Age: 51 Gender: M : 1970 Procedure CPT: Indications: I20.0 conronary syndrome ICD-10 Codes: Patient History: Medications: Meds past 24 hrs: Pretest Chest Pain: STRESS TEST Lexiscan Protocol Exercise Duration (min:sec): 02:[address] Depressions (mm): Angina Score: Harris Score: Resting HR (bpm): 61 Peak HR (bpm): 80 Resting BP (mmHg): 156 / 78 Peak BP (mmHg): 156 / 75 MPHR: 168 Target HR: 143 % MPHR: 48 METS: 1.0 Total Dose: Peak Dose: Atropine: Double Product: 37781 BP Response: Stress Termination: PROTOCOL COMPLETED Stress Symptoms: SLIGHT HEADACHE Stress Summary: ECG ANALYSIS Resting ECG: Stress ECG: CONCLUSIONS Non-diagnostic electrocardiogram stress testing in response to Lexiscan Please follow-up on the Cardiolite portion on a separate report Dr. Froy Sal MD (Electronically Signed) Final Date: 03 January 2022 12:02
== END | disposition home or self-care (01) ==
LOC: RADNMMAIN 08:05
PROVIDERS: ATTEND Internal Medicine Cardiovascular Disease
DX: I42.0 Dilated cardiomyopathy (principal); I10 Essential (primary) hypertension; E11.9 Type 2 diabetes mellitus without complications; Z87.891 Personal history of nicotine dependence; Z98.61 Coronary angioplasty status
CPT/HCPCS: 93017; 78452; A9500; J2785

== ENCOUNTER → 2022-01-06 | Outpatient (CLI) | payer OTHER ==
[2022-01-06 18:25] LABS: HCT 37.6 % (39.6-50.0); HGB 12.2 g/dL (13.0-17.0); MCH 29.3 pg (27.0-32.0); MCHC 32.4 g/dL (32.0-37.0); MCV 90.2 fL (80.0-97.0); Mean Platelet Volume 9.5 fL (9.5-12.2); NRBC Per 100 WBC 0 /100 WBCS (0.0-0.0); Platelet Count 369 X 10*3/uL (140-440); RBC 4.17 X 10*6/uL (4.40-5.60); RDW 15.2 % (11.5-14.5); WBC 10.69 X 10*3/uL (4.50-10.00)
[2022-01-06 19:31] LABS: Blood Urea Nitrogen 9.5 mg/dL (9.0-27.0); Non-African American GFR(CKD) 102.7 (60.0-200.0); Potassium 4.5 mmol/L (3.5-5.5)
== END | disposition home or self-care (01) ==
LOC: LABPAT 11:47
PROVIDERS: ATTEND Internal Medicine Cardiovascular Disease
DX: Z01.812 Encounter for preprocedural laboratory examination (principal); I25.10 Atherosclerotic heart disease of native coronary artery without angina pectoris
CPT/HCPCS: 80051; 82565; 84520; 85027

== ENCOUNTER 2022-01-10 06:19 | Day surgery (SDC) | payer OTHER ==
[2022-01-05 16:23] VITALS: BMI 46.8
[~2022-01-10 06:19] MED LIST changes: +ALPRAZolam 0.25 MG TAB PO PRN; +ALPRAZolam 0.5 MG TAB PO PRN; +ASPIRIN 325 MG TAB PO STA; +ATORVASTATIN 80 MG TAB PO STA; +HEPARIN SODIUM,PORCINE 10,000 UNIT in SODIUM CHLORIDE 0.9% 1,000 ML IRRIGATION PRN; +HEPARIN SODIUM,PORCINE 2,500 UNIT in SODIUM CHLORIDE 0.9% 250 ML IRRIGATION PRN; +NITROGLYCERIN SL TABS 0.4 MG TAB SUBLINGUAL PRN; -REGADENOSON 0.4 MG/5 ML SYRINGE IV PRN; +SODIUM CHLORIDE 0.9% 1,000 ML in EMPTY BAG 1 BAG IV SCH
[2022-01-10 06:43] VITALS: TEMP 98.1
[2022-01-10 06:47] LABS: Glucose,Whole Blood 100 mg/dL (70-110)
[2022-01-10] MEDS ORDERED: VERAPAMIL 2.5 MG/ML 2 ML AMP ONE (07:20)
[2022-01-10] MEDS ORDERED: fentaNYL (PF) 50 MCG/ML 2 ML AMP ONE (07:34)
[2022-01-10] MEDS ORDERED: MIDAZOLAM 2 MG/2 ML VIAL IV ONE (07:35)
[2022-01-10] MEDS ORDERED: LIDOCAINE 1% INJ 10MG/ML (30 ML VIAL-PF) SQ ONE (07:38)
[2022-01-10] MEDS ORDERED: fentaNYL (PF) 50 MCG/ML 2 ML AMP IV ONE (07:38)
[2022-01-10] MEDS ORDERED: VERAPAMIL SYRINGE (5 MG/10 ML) INTRAARTER ONE (07:40)
[2022-01-10] MEDS ORDERED: HEPARIN SODIUM 1,000 UN/ML (10ML VL) ONE (07:42)
[2022-01-10] MEDS ORDERED: IOPAMIDOL-370 125ML BTL INJ ONE (07:50)
--- NOTE | 2022-01-10 08:44 | CC ---
CARDIAC CATHETERIZATION REPORT INDICATIONS: Ischemic cardiomyopathy. PROCEDURE NOTE: After obtaining informed consent, left heart catheterization and coronary angiogram were performed via the right radial artery using a size 4 right Alecia catheter, size 3.5 left Alecia catheter. The patient tolerated the procedure well without any obvious immediate complications, received conscious sedation. Total sedation time was 19 minutes. Right radial artery access was obtained using Seldinger technique, and a 6-Belarusian sheath was placed in the right radial artery. Catheters and wires were floated into the ascending aorta under fluoroscopic guidance where the catheters were exchanged. Left ventricular hemodynamics was obtained using the right Alecia catheter. The patient tolerated the procedure well. TR band was used for hemostasis. He received 5 mg of verapamil and 6500 units of intravenous heparin per protocol. FINDINGS: 1. Hemodynamics: Left ventricular end-diastolic pressure is 30 mm, there is no significant gradient across the aortic valve. 2. Left ventriculogram: Left ventriculogram is not performed. 3. Angiographic data: a.Left main coronary artery: Left main coronary artery is a normal-sized vessel and is free of stenosis, divides into left anterior descending coronary artery and circumflex coronary artery. LAD and its branches and circumflex coronary artery and its branches are free of significant stenosis. There are left-to- right collaterals to the distal right coronary artery. The right coronary artery is a dominant vessel, based on the previous angiogram it is totally occluded in the proximal portion. CONCLUSIONS: 1. Chronically occluded right coronary artery. 2. Ischemic cardiomyopathy secondary to that. PLAN: Will treat the patient with optimal medical therapy with aspirin, beta blockers, BRIE inhibitors and statins. I will add losartan 25 mg daily to current medical regimen. MMODL / IJN: [id number] /
[2022-01-10 12:39] VITALS: RESP 16
[2022-01-10 12:43] VITALS: BP 153/70; PULSE 72
== END 2022-01-10 12:12 | disposition home or self-care (01) ==
LOC: CATHCVL 06:19
PROVIDERS: ATTEND Internal Medicine Cardiovascular Disease
DX: I25.5 Ischemic cardiomyopathy (principal); I25.10 Atherosclerotic heart disease of native coronary artery without angina pectoris; I10 Essential (primary) hypertension; E78.2 Mixed hyperlipidemia; F17.210 Nicotine dependence, cigarettes, uncomplicated; Z79.82 Long term (current) use of aspirin; Z79.899 Other long term (current) drug therapy
CPT/HCPCS: 93458; C1769; C1894; J2250; J2001; J3010; J1644; Q9967

== ENCOUNTER 2022-02-02 11:45 | Emergency (ER) | payer OTHER ==
[2022-02-02 11:55] VITALS: BP 145/84; TEMP 98.2
[2022-02-02 12:41] LABS: Basophils # (A) 0.1 k/uL (0-0.2); Basophils % (A) 1 %; Eosinophils # (A) 0.7 k/uL (0-0.7); Eosinophils % (A) 6 %; HCT 36.7 % (39.0-53.0); HGB 12.6 gm/dL (13.0-17.5); Lymphocytes # (A) 2.9 k/uL (1.0-4.8); Lymphocytes % (A) 26 %; MCH 30.5 pg (25.0-35.0); MCHC 34.2 g/dL (31.0-37.0); MCV 89.1 fL (80.0-100.0); Mean Platelet Volume 7.6; Monocytes # (A) 0.5 k/uL (0-1.0); Monocytes % (A) 4 %; Neutrophils # (A) 6.9 k/uL (1.3-7.7); Neutrophils % (A) 61 %; Platelet Count 338 k/uL (150-450); RBC 4.12 m/uL (4.30-5.90); RDW 14.9 % (11.5-15.5); WBC 11.2 k/uL (3.8-10.6)
[2022-02-02 12:52] LABS: ALT 17 U/L (4-49); AST 20 U/L (17-59); African American GFR (CKD) >90 (>60 ml/min/1.73 sqM); Albumin 4.2 g/dL (3.5-5.0); Alkaline Phosphatase 85 U/L (38-126); Anion Gap 6 mmol/L; Blood Urea Nitrogen 16 mg/dL (9-20); Calcium 9.2 mg/dL (8.4-10.2); Carbon Dioxide 28 mmol/L (22-30); Chloride 105 mmol/L (98-107); Glucose 70 mg/dL (74-99); Magnesium 2.1 mg/dL (1.6-2.3); Non-African American GFR(CKD) >90 (>60 ml/min/1.73 sqM); Potassium 4.3 mmol/L (3.5-5.1); Sodium 139 mmol/L (137-145); Total Bilirubin 0.6 mg/dL (0.2-1.3); Total Protein 7.4 g/dL (6.3-8.2)
[2022-02-02] MEDS ORDERED: ASPIRIN 81 MG PO STA (13:01)
[2022-02-02] MEDS ORDERED: NITROGLYCERIN OINT 1 INCH/GM PACKET TOPICAL STA (13:01)
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
[2022-02-02 13:15] LABS: INR 0.9 (<1.2); Partial Thromboplastin Time 25.4 sec (22.0-30.0); Prothrombin Time 10.1 sec (9.0-12.0)
--- NOTE | 2022-02-02 13:27 | XR ---
EXAMINATION TYPE: XR chest 2V DATE OF EXAM: 02/02/2022 COMPARISON: Chest x-ray July 03, 2018 HISTORY: Difficulty in breathing. TECHNIQUE: Frontal and lateral views of the chest are obtained. FINDINGS: There is no focal air space opacity, pleural effusion, or pneumothorax seen. The cardiac silhouette size is stable and mildly enlarged. The osseous structures are intact. Overlying EKG leads are redemonstrated. IMPRESSION: Mild cardiomegaly without acute pulmonary process. No significant change from prior.
[2022-02-02] MEDS ORDERED: NITROGLYCERIN SL TABS 0.4 MG TAB SUBLINGUAL PRN (13:39)
[2022-02-02 14:20] VITALS: PULSE 71; RESP 18
[2022-02-02] MEDS ORDERED: NITROGLYCERIN OINT 1 INCH/GM PACKET TOPICAL SCH (18:00)
[2022-02-03] MEDS ORDERED: ASPIRIN 325 MG TAB PO SCH (09:00)
== END 2022-02-02 14:20 | disposition left against medical advice (07) ==
LOC: EC 11:45
DX: R07.9 Chest pain, unspecified (principal); E11.9 Type 2 diabetes mellitus without complications; K21.9 Gastro-esophageal reflux disease without esophagitis; I25.2 Old myocardial infarction; M19.90 Unspecified osteoarthritis, unspecified site; I10 Essential (primary) hypertension; F32.A Depression, unspecified; F17.200 Nicotine dependence, unspecified, uncomplicated; Z88.8 Allergy status to other drugs, medicaments and biological substances; Z79.82 Long term (current) use of aspirin; Z79.899 Other long term (current) drug therapy; Z53.29 Procedure and treatment not carried out because of patient's decision for other reasons
CPT/HCPCS: 36415; 71046; 80053; 83735; 84484; 85025; 85610; 85730; 93005; 99285

== ENCOUNTER → 2022-03-03 | Outpatient (CLI) | payer OTHER ==
--- NOTE | 2022-03-03 17:07 | P.PN ---
Subjective DATE: 03/03/2022 FOLLOW UP VISIT. Patient with obstructive sleep apnea hypopnea syndrome return to sleep center for follow-up visit. Information from previous visit have been reviewed. Patient is using PAP equipment every night for the whole night, getting PAP supplies in time. The patient does not have significant problems with the mask, PAP unit and humidification. [place] sleepiness scale is 4, which is normal. I checked information from PAP unit. Pap unit is old. PAP unit pressure 18 cm H2O. Usage is 100% and 75 % for more then 4 hours, average 5.3 hours per night. Leak is 35 l/m, which is in acceptable range. Apnea Hypopnea Index is 0.2, which is normal. MEDICATIONS:1. Protonix 40 mg once a day 2. Carvedilol 25 mg twice a day 3. Atorvastatin 40 mg once a day 4. Citalopram 20 mg once a day 5. Glimepiride 2 mg twice a day 6. Losartan 25 mg once a day 7. Aspirin 81 mg once a day 8. Ferrous sulfate 325 mg once a day During physical exam: GENERAL: A pleasant patient without any distress. VITAL SIGNS: BP 158/91, HR 71, RR 18, weight 352.8, temperature 97.2, oxygen saturation at room air 97 % . HEENT: PERRLA, EOMI.low position of soft palate, Mallapati 4 . NECK: Supple. No JVD. LUNGS: Clear to percussion and to auscultation. Good air exchange. No wheezing or rhonchi. HEART: S1, S2 regular. ABDOMEN: Soft and nontender. Slightly obese EXTREMITIES: No clubbing or cyanosis. [employer]GER: Awake, alert, and oriented x3. No focal deficit. Impressions: 1. Obstructive sleep apnea-hypopnea syndrome in severe range. Patient demonstrated good compliance with treatment, benefiting from treatment. CPAP unit is old. 2. Hypertension. 3. Obesity. 4. Coronary artery disease status post stent insertion. 5. Hyperlipidemia. 6. Smokier. 7. History of back problems. 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 Continue using PAP equipment every night for the whole night. Prescription to replace CPAP unit. CPAP unit is old. 2. To change air filter at least 1-2 times per month. 3. PAP unit should stay lower then position of the head. 4. Advised patient to remove all remaining water from humidifier canister daily and make it dry after each usage. Refill canister with fresh distilled water before each usage. 5. Sleep hygiene with regular time in bed for at least 8 hours. 6. Precautions related to driving. No driving if feel any sleepiness. 7. I will maintain prescription for PAP supplies including mask, tube, filters. 8. Follow up visit in one months after getting new CPAP unit. 9. Watching and losing weight. Thank you very much for allowing me to participate in the management of your patient. Jan Mejía MD, PhD, FAASM. Diplomat of [place] [employer], Sleep Medicine Board by [place] [employer] Electronic Systems Technician of [facility] [place]
== END ==
LOC: SLEEP 16:12
PROVIDERS: ATTEND Internal Medicine
DX: G47.33 Obstructive sleep apnea (adult) (pediatric) (principal); Z99.89 Dependence on other enabling machines and devices; I10 Essential (primary) hypertension; E66.9 Obesity, unspecified; E78.5 Hyperlipidemia, unspecified; Z98.61 Coronary angioplasty status; Z87.39 Personal history of other diseases of the musculoskeletal system and connective tissue; Z91.048 Other nonmedicinal substance allergy status; F17.200 Nicotine dependence, unspecified, uncomplicated

== ENCOUNTER → 2022-05-16 | Outpatient (CLI) | payer OTHER ==
--- NOTE | 2022-05-16 15:36 | US ---
EXAMINATION TYPE: US carotid duplex BILAT DATE OF EXAM: 05/16/2022 COMPARISON: NONE CLINICAL HISTORY: R42 DIZZINESS. TECHNIQUE: Carotid duplex ultrasound examination. Indirect Doppler criteria was utilized. FINDINGS: EXAM MEASUREMENTS: RIGHT: Peak Systolic Velocity (PSV) cm/sec ----- Right CCA: 79.7 ----- Right ICA: 92.1 ----- Right ECA: 106.0 ICA/CCA ratio: 1.2 RIGHT: End Diastole cm/sec ----- Right CCA: 21.1 ----- Right ICA: 33.8 ----- Right ECA: 15.8 LEFT: Peak Systolic Velocity (PSV) cm/sec ----- Left CCA: 84.4 ----- Left ICA: 89.2 ----- Left ECA: 91.5 ICA/CCA ratio: 1.1 LEFT: End Diastole cm/sec ----- Left CCA: 21.6 ----- Left ICA: 31.0 ----- Left ECA: 14.0 VERTEBRALS (direction of flow): Right Vertebral: Antegrade Left Vertebral: Antegrade Rhythm: Normal No significant stenosis IMPRESSION: No hemodynamically significant stenosis is seen in either internal carotid artery. Criteria for Assigning % of Stenosis / Diameter reduction (Estimation based on the indirect measurements of the internal carotid artery velocities (ICA PSV). 1. Normal (no stenosis)=ICA PSV < 125 cm/s: ratio < 2.0: ICA EDV<40 cm/s. 2. Less than 50% stenosis=ICA PSV < 125 cm/s: ratio < 2.0: ICA EDV<40 cm/s. 3. 50 to 69% stenosis=ICA PSV of 125 to 230 cm/s: ration 2.0 ? 4.0: ICA EDV 40-100 cm/s. 4. Greater than 70% stenosis to near occlusion= ICA PSV > 230 cm/s: ratio > 4.0: ICA EDV > 100 cm/s. 5. Near occlusion= ICA PSV velocities may be low or undetectable: variable ratio and ICA EDV. 6. Total occlusion=unable to detect flow.
== END | disposition home or self-care (01) ==
LOC: RADUSWWP 14:56
PROVIDERS: ATTEND Family Medicine
DX: R42 Dizziness and giddiness (principal)
CPT/HCPCS: 93880